=== PATIENT | female | born 1950 | race Caucasian/White ===

== ENCOUNTER → 2016-07-16 | Outpatient (CLI) | payer MEDICARE, OTHER | LOC: MW.CHFP 08:59 | PROVIDERS: ATTEND Emergency Medicine | DX: I10 Essential (primary) hypertension (principal); Z53.8 Procedure and treatment not carried out for other reasons ==

== ENCOUNTER 2022-08-08 14:22 | Emergency (ER) | payer MEDICARE ==
[2022-08-08 15:45] LABS: BASOPHILS PERCENT AUTO 0.4 % (0.0-1.5); EOSINOPHILS ABSOLUTE AUTO 0.1 K/uL (0.0-0.7); EOSINOPHILS PERCENT AUTO 0.8 % (0.0-7.0); HEMATOCRIT 40.2 % (36.0-46.0); HEMOGLOBIN 13.6 g/dL (12.0-16.0); LYMPHOCYTES ABSOLUTE AUTO 1.3 K/uL (0.6-2.4); LYMPHOCYTES PERCENT AUTO 16.9 % (16.0-40.0); MEAN CORPUSCULAR HEMOGLOBIN 29.8 pg (27.0-32.0); MEAN CORPUSCULAR HGB CONC 33.8 g/dL (31.0-37.0); MONOCYTES ABSOLUTE AUTO 0.7 K/uL (0.0-0.8); MONOCYTES PERCENT AUTO 8.5 % (0.0-15.0); NEUTROPHILS ABSOLUTE AUTO 5.6 K/uL (1.4-5.7); NEUTROPHILS PERCENT AUTO 73.4 % (48.0-80.0); NRBC ABSOLUTE 0 K/uL; PLATELET COUNT,PLT 175 K/uL (150-400); RED BLOOD CELL COUNT 4.57 M/uL (4.30-5.90); WHITE BLOOD CELL COUNT,WBC 7.65 K/uL (4.0-11.0)
[2022-08-08 16:15] LABS: A/G RATIO 1.3 (0.9-1.6); BILIRUBIN TOTAL 0.5 mg/dL (0.2-1.0); CALCIUM 9.3 mg/dL (8.5-10.1); CARBON DIOXIDE,CO2 21.9 mmol/L (21.0-32.0); CREATININE 1.5 mg/dL (0.6-1.0); EST CRCL DRUG DOSING (CG) 32.99 mL/min; MAGNESIUM 1.9 mg/dL (1.8-2.4); POTASSIUM,K 3.7 mmol/L (3.5-5.1); PROTEIN TOTAL,TP 7.2 g/dL (6.4-8.2)
[2022-08-08 17:08] VITALS: BP 154/97; PULSE 107
== END 2022-08-08 17:09 | disposition home or self-care (01) ==
LOC: MW.ED 14:22
DX: R42 Dizziness and giddiness (principal); I10 Essential (primary) hypertension; K21.9 Gastro-esophageal reflux disease without esophagitis; Z79.899 Other long term (current) drug therapy; Z79.82 Long term (current) use of aspirin
CPT/HCPCS: 36415; 70450; 70450-26; 71045; 71045-26; 80053; 83735; 83880; 84443; 84484; 85025; 93005; 99284

== ENCOUNTER 2023-08-26 15:09 | Inpatient (IN) | payer MEDICARE ==
[2023-08-26 15:25] LABS: BASOPHILS ABSOLUTE AUTO 0.05 K/uL (0.00-0.20); BASOPHILS PERCENT AUTO 0.7 % (0.0-1.0); EOSINOPHILS ABSOLUTE AUTO 0.15 K/uL (0.00-0.45); HEMATOCRIT 40.6 % (37.0-47.0); HEMOGLOBIN 13.3 g/dL (12.0-16.0); IMMATURE GRAN ABSOLUTE AUTO 0.02 K/uL (0.00-0.05); IMMATURE GRAN PERCENT AUTO 0.3 % (0.0-0.4); LYMPHOCYTES ABSOLUTE AUTO 1.38 K/uL (1.00-4.80); LYMPHOCYTES PERCENT AUTO 18.8 % (24.0-44.0); MEAN CORPUSCULAR HEMOGLOBIN 30.5 pg (28.0-32.0); MEAN CORPUSCULAR HGB CONC 32.8 g/dL (32.0-36.0); MEAN CORPUSCULAR VOLUME 93.1 fL (83.0-99.0); MEAN PLATELET VOLUME 10.1 fL (9.4-12.3); MONOCYTES ABSOLUTE AUTO 0.41 K/uL (0.00-0.80); MONOCYTES PERCENT AUTO 5.6 % (0.0-8.0); NEUTROPHILS ABSOLUTE AUTO 5.33 K/uL (1.80-7.70); NEUTROPHILS PERCENT AUTO 72.6 % (41.0-71.0); PLATELET COUNT,PLT 180 K/uL (150-400); RED BLOOD CELL COUNT 4.36 M/uL (4.10-5.30); WHITE BLOOD CELL COUNT,WBC 7.34 K/uL (3.9-11.3)
[2023-08-26 15:41] LABS: INR 1.19 (0.86-1.11)
[2023-08-26 15:55] LABS: A/G RATIO 1.3 (0.9-1.6); ALBUMIN 3.2 g/dL (3.4-5.0); BILIRUBIN TOTAL 0.5 mg/dL (0.2-1.0); CALCIUM 8.8 mg/dL (8.5-10.1); CARBON DIOXIDE,CO2 23.9 mmol/L (21.0-32.0); CREATININE 1.4 mg/dL (0.6-1.0); EST CRCL DRUG DOSING (CG) 33.31 mL/min; POTASSIUM,K 4.5 mmol/L (3.5-5.1); PROTEIN TOTAL,TP 5.7 g/dL (6.4-8.2)
[2023-08-26] MEDS: Lactated Ringers 1,000 ML IV ONE (15:59)
[2023-08-26 16:04] LABS: MAGNESIUM 1.9 mg/dL (1.8-2.4); TSH ULTRASENSITIVE 1.77 uIU/mL (0.36-3.74)
[2023-08-26] MEDS: Metoprolol Tartrate 5 MG/5 ML SDV IVPUSH ONE ×3 (17:09→18:46)
[2023-08-26] MEDS: Iopamidol 755 MG/ML 500 ML Multipack Bottle IVPUSH STA (18:28)
[2023-08-26] MEDS: Furosemide 20 MG/2 ML VIAL IVPUSH ONE (18:47)
[2023-08-26] MEDS: Diltiazem 100 MG in Sodium Chloride 0.9% 100 ML IV SCH (19:31)
[2023-08-26 19:44] LABS: APPEARANCE,URINE CLEAR; BILIRUBIN,URINE NEGATIVE (NEGATIVE); COLOR,URINE YELLOW; GLUCOSE,URINE NEGATIVE (NEGATIVE); KETONES,URINE NEGATIVE (NEGATIVE); LEUKOCYTE ESTERASE,URINE NEGATIVE (NEGATIVE); NITRITE,URINE NEGATIVE (NEGATIVE); OCCULT BLOOD,URINE NEGATIVE (NEGATIVE); PROTEIN,URINE NEGATIVE (NEGATIVE); UROBILINOGEN,URINE 0.2 EU/dL (<2.0)
[2023-08-26] MEDS ORDERED: Albuterol/Ipratropium 3.0-0.5 MG/3 ML Neb Soln NEB PRN (22:14)
[2023-08-26] MEDS ORDERED: Sodium Chloride 0.9% 2.5 ML Syringe FLUSH PRN (22:14)
[2023-08-26] MEDS ORDERED: Polyethylene Glycol 3350 Powder 17 GM Packet PO PRN (22:14)
[2023-08-26] MEDS ORDERED: Ondansetron 4 MG/2 ML SDV IVPUSH PRN (22:14)
[2023-08-26] MEDS ORDERED: Sodium Chloride 0.9% 10 ML Syringe FLUSH PRN (22:14)
[2023-08-26] MEDS ORDERED: Acetaminophen 325 MG Tab PO PRN (22:14)
[2023-08-26 22:52] LABS: HEMOGLOBIN A1C 5.7 %
[2023-08-26 23:21] LABS: BACTERIA,URINE RARE (NEGATIVE); EPITHELIAL CELLS,URINE RARE (NONE-FEW); RBC,URINE NONE SEEN (0-2/HPF); WBC,URINE 0-1 (0-5/HPF)
[2023-08-27] MEDS: Melatonin 3 MG Tab PO PRN (01:07)
[2023-08-27 05:59] LABS: BASOPHILS ABSOLUTE AUTO 0.03 K/uL (0.00-0.20); BASOPHILS PERCENT AUTO 0.5 % (0.0-1.0); EOSINOPHILS PERCENT AUTO 1.6 % (0.0-6.0); HEMATOCRIT 38.6 % (37.0-47.0); HEMOGLOBIN 12.5 g/dL (12.0-16.0); IMMATURE GRAN ABSOLUTE AUTO 0.02 K/uL (0.00-0.05); IMMATURE GRAN PERCENT AUTO 0.3 % (0.0-0.4); LYMPHOCYTES ABSOLUTE AUTO 1.28 K/uL (1.00-4.80); LYMPHOCYTES PERCENT AUTO 20.9 % (24.0-44.0); MEAN CORPUSCULAR HEMOGLOBIN 30.3 pg (28.0-32.0); MEAN CORPUSCULAR HGB CONC 32.4 g/dL (32.0-36.0); MEAN CORPUSCULAR VOLUME 93.7 fL (83.0-99.0); MEAN PLATELET VOLUME 10.4 fL (9.4-12.3); MONOCYTES ABSOLUTE AUTO 0.42 K/uL (0.00-0.80); MONOCYTES PERCENT AUTO 6.9 % (0.0-8.0); NEUTROPHILS ABSOLUTE AUTO 4.28 K/uL (1.80-7.70); NEUTROPHILS PERCENT AUTO 69.8 % (41.0-71.0); PLATELET COUNT,PLT 153 K/uL (150-400); RED BLOOD CELL COUNT 4.12 M/uL (4.10-5.30); WHITE BLOOD CELL COUNT,WBC 6.13 K/uL (3.9-11.3)
[2023-08-27 06:40] LABS: ALBUMIN 2.8 g/dL (3.4-5.0); BILIRUBIN TOTAL 0.5 mg/dL (0.2-1.0); CALCIUM 8.2 mg/dL (8.5-10.1); CARBON DIOXIDE,CO2 27.7 mmol/L (21.0-32.0); CREATININE 1.4 mg/dL (0.6-1.0); EST CRCL DRUG DOSING (CG) 32.06 mL/min; MAGNESIUM 1.8 mg/dL (1.8-2.4); PHOSPHORUS 3.7 mg/dL (2.6-4.7); POTASSIUM,K 3.8 mmol/L (3.5-5.1); PROTEIN TOTAL,TP 5.5 g/dL (6.4-8.2)
[2023-08-27] MEDS: Haloperidol Lactate 5 MG/ML SDV ONE (08:09)
[2023-08-27] MEDS: LORazepam 2 MG/ML SDV ONE (08:23)
[2023-08-27] MEDS: Diltiazem 100 MG in Sodium Chloride 0.9% 100 ML IV SCH (08:26)
[2023-08-27] MEDS: Magnesium Sulfate/Water 2 GM in Premix Bag 1 BAG IV ONE (09:48)
[2023-08-27] MEDS: Haloperidol Lactate 5 MG/ML SDV IM ONE (11:36)
[2023-08-27] MEDS: Potassium Chloride 20 MEQ Tab.ER PO ONE (11:37)
[2023-08-27] MEDS: Furosemide 40 MG/4 ML VIAL IVPUSH SCH (11:37)
[2023-08-27] MEDS: Apixaban 5 MG Tab PO SCH (11:38)
[2023-08-27] MEDS: Heparin Sodium 5,000 Units/ML Vial SUBCUT SCH (11:39)
[2023-08-27] MEDS: LORazepam 2 MG/ML SDV IVPUSH PRN (14:29)
[2023-08-27] MEDS: Mirtazapine 15 MG Tab PO SCH (20:29)
[2023-08-28] MEDS: Diltiazem 100 MG in Sodium Chloride 0.9% 100 ML IV SCH (01:37)
[2023-08-28 05:50] LABS: BASOPHILS ABSOLUTE AUTO 0.04 K/uL (0.00-0.20); BASOPHILS PERCENT AUTO 0.5 % (0.0-1.0); EOSINOPHILS ABSOLUTE AUTO 0.14 K/uL (0.00-0.45); EOSINOPHILS PERCENT AUTO 1.7 % (0.0-6.0); IMMATURE GRAN ABSOLUTE AUTO 0.02 K/uL (0.00-0.05); IMMATURE GRAN PERCENT AUTO 0.2 % (0.0-0.4); LYMPHOCYTES ABSOLUTE AUTO 0.82 K/uL (1.00-4.80); LYMPHOCYTES PERCENT AUTO 9.7 % (24.0-44.0); MEAN CORPUSCULAR HEMOGLOBIN 30.2 pg (28.0-32.0); MEAN CORPUSCULAR HGB CONC 32.5 g/dL (32.0-36.0); MEAN CORPUSCULAR VOLUME 92.8 fL (83.0-99.0); MEAN PLATELET VOLUME 9.7 fL (9.4-12.3); MONOCYTES PERCENT AUTO 5.9 % (0.0-8.0); NEUTROPHILS ABSOLUTE AUTO 6.93 K/uL (1.80-7.70); PLATELET COUNT,PLT 153 K/uL (150-400); RED BLOOD CELL COUNT 4.31 M/uL (4.10-5.30); WHITE BLOOD CELL COUNT,WBC 8.45 K/uL (3.9-11.3)
[2023-08-28 06:34] LABS: ALBUMIN 2.9 g/dL (3.4-5.0); BILIRUBIN TOTAL 0.7 mg/dL (0.2-1.0); CALCIUM 8.2 mg/dL (8.5-10.1); CARBON DIOXIDE,CO2 27.6 mmol/L (21.0-32.0); CREATININE 1.3 mg/dL (0.6-1.0); MAGNESIUM 2.2 mg/dL (1.8-2.4); POTASSIUM,K 3.5 mmol/L (3.5-5.1); PROTEIN TOTAL,TP 5.7 g/dL (6.4-8.2)
[2023-08-28 06:40] LABS: EST CRCL DRUG DOSING (CG) 33.65 mL/min
[2023-08-28] MEDS: Potassium Chloride 10% 20 MEQ/15 ML Soln 15 ML UD Cup PO ONE (11:57)
[2023-08-28] MEDS: Potassium Chloride 10% 20 MEQ/15 ML Soln 15 ML UD Cup ONE (12:02)
[2023-08-28] MEDS: Carvedilol 3.125 MG Tab PO SCH (14:16)
[2023-08-29 05:44] LABS: BASOPHILS ABSOLUTE AUTO 0.03 K/uL (0.00-0.20); BASOPHILS PERCENT AUTO 0.4 % (0.0-1.0); EOSINOPHILS ABSOLUTE AUTO 0.15 K/uL (0.00-0.45); EOSINOPHILS PERCENT AUTO 1.8 % (0.0-6.0); HEMATOCRIT 39.4 % (37.0-47.0); HEMOGLOBIN 13.2 g/dL (12.0-16.0); IMMATURE GRAN ABSOLUTE AUTO 0.02 K/uL (0.00-0.05); IMMATURE GRAN PERCENT AUTO 0.2 % (0.0-0.4); LYMPHOCYTES ABSOLUTE AUTO 1.28 K/uL (1.00-4.80); LYMPHOCYTES PERCENT AUTO 15.1 % (24.0-44.0); MEAN CORPUSCULAR HEMOGLOBIN 30.3 pg (28.0-32.0); MEAN CORPUSCULAR HGB CONC 33.5 g/dL (32.0-36.0); MEAN CORPUSCULAR VOLUME 90.4 fL (83.0-99.0); MEAN PLATELET VOLUME 9.5 fL (9.4-12.3); MONOCYTES ABSOLUTE AUTO 0.67 K/uL (0.00-0.80); MONOCYTES PERCENT AUTO 7.9 % (0.0-8.0); NEUTROPHILS PERCENT AUTO 74.6 % (41.0-71.0); PLATELET COUNT,PLT 173 K/uL (150-400); RED BLOOD CELL COUNT 4.36 M/uL (4.10-5.30); WHITE BLOOD CELL COUNT,WBC 8.45 K/uL (3.9-11.3)
[2023-08-29 06:30] LABS: A/G RATIO 1.1 (0.9-1.6); ALBUMIN 3.1 g/dL (3.4-5.0); BILIRUBIN TOTAL 0.8 mg/dL (0.2-1.0); CALCIUM 8.4 mg/dL (8.5-10.1); CARBON DIOXIDE,CO2 27.7 mmol/L (21.0-32.0); CREATININE 1.3 mg/dL (0.6-1.0); EST CRCL DRUG DOSING (CG) 33.65 mL/min; MAGNESIUM 1.9 mg/dL (1.8-2.4); POTASSIUM,K 3.5 mmol/L (3.5-5.1)
[2023-08-29] MEDS: Potassium Chloride 20 MEQ Tab.ER PO ONE (09:17)
[2023-08-29] MEDS: LORazepam 2 MG/ML SDV IVPUSH PRN (11:54)
[2023-08-29] MEDS: Carvedilol 12.5 MG Tab PO SCH (20:59)
[2023-08-29] MEDS: LORazepam 2 MG/ML SDV IVPUSH ONE (23:48)
[2023-08-30 05:56] LABS: BASOPHILS ABSOLUTE AUTO 0.04 K/uL (0.00-0.20); BASOPHILS PERCENT AUTO 0.5 % (0.0-1.0); EOSINOPHILS ABSOLUTE AUTO 0.12 K/uL (0.00-0.45); EOSINOPHILS PERCENT AUTO 1.4 % (0.0-6.0); HEMATOCRIT 43.8 % (37.0-47.0); IMMATURE GRAN ABSOLUTE AUTO 0.02 K/uL (0.00-0.05); IMMATURE GRAN PERCENT AUTO 0.2 % (0.0-0.4); LYMPHOCYTES ABSOLUTE AUTO 1.44 K/uL (1.00-4.80); LYMPHOCYTES PERCENT AUTO 17.1 % (24.0-44.0); MEAN CORPUSCULAR HEMOGLOBIN 29.7 pg (28.0-32.0); MEAN CORPUSCULAR VOLUME 92.8 fL (83.0-99.0); MONOCYTES ABSOLUTE AUTO 0.53 K/uL (0.00-0.80); MONOCYTES PERCENT AUTO 6.3 % (0.0-8.0); NEUTROPHILS ABSOLUTE AUTO 6.29 K/uL (1.80-7.70); NEUTROPHILS PERCENT AUTO 74.5 % (41.0-71.0); PLATELET COUNT,PLT 188 K/uL (150-400); RED BLOOD CELL COUNT 4.72 M/uL (4.10-5.30); WHITE BLOOD CELL COUNT,WBC 8.44 K/uL (3.9-11.3)
[2023-08-30 06:12] LABS: CALCIUM 8.8 mg/dL (8.5-10.1); CARBON DIOXIDE,CO2 25.3 mmol/L (21.0-32.0); CREATININE 1.2 mg/dL (0.6-1.0); EST CRCL DRUG DOSING (CG) 35.49 mL/min; MAGNESIUM 2.1 mg/dL (1.8-2.4); POTASSIUM,K 4.2 mmol/L (3.5-5.1)
[2023-08-30] MEDS: Carvedilol 12.5 MG Tab PO ONE (09:38)
[2023-08-30] MEDS: Carvedilol 25 MG Tab PO SCH (20:37)
[2023-08-31 05:49] LABS: BASOPHILS ABSOLUTE AUTO 0.05 K/uL (0.00-0.20); BASOPHILS PERCENT AUTO 0.5 % (0.0-1.0); EOSINOPHILS ABSOLUTE AUTO 0.18 K/uL (0.00-0.45); EOSINOPHILS PERCENT AUTO 1.8 % (0.0-6.0); HEMATOCRIT 40.2 % (37.0-47.0); HEMOGLOBIN 13.4 g/dL (12.0-16.0); IMMATURE GRAN ABSOLUTE AUTO 0.02 K/uL (0.00-0.05); IMMATURE GRAN PERCENT AUTO 0.2 % (0.0-0.4); LYMPHOCYTES ABSOLUTE AUTO 1.51 K/uL (1.00-4.80); LYMPHOCYTES PERCENT AUTO 15.4 % (24.0-44.0); MEAN CORPUSCULAR HEMOGLOBIN 30.4 pg (28.0-32.0); MEAN CORPUSCULAR HGB CONC 33.3 g/dL (32.0-36.0); MEAN CORPUSCULAR VOLUME 91.2 fL (83.0-99.0); MEAN PLATELET VOLUME 9.9 fL (9.4-12.3); MONOCYTES ABSOLUTE AUTO 0.59 K/uL (0.00-0.80); NEUTROPHILS ABSOLUTE AUTO 7.46 K/uL (1.80-7.70); NEUTROPHILS PERCENT AUTO 76.1 % (41.0-71.0); PLATELET COUNT,PLT 181 K/uL (150-400); RED BLOOD CELL COUNT 4.41 M/uL (4.10-5.30); WHITE BLOOD CELL COUNT,WBC 9.81 K/uL (3.9-11.3)
[2023-08-31 06:11] LABS: CALCIUM 8.7 mg/dL (8.5-10.1); CARBON DIOXIDE,CO2 25.3 mmol/L (21.0-32.0); CREATININE 1.4 mg/dL (0.6-1.0); POTASSIUM,K 4.2 mmol/L (3.5-5.1)
[2023-08-31 06:25] LABS: EST CRCL DRUG DOSING (CG) 30.33 mL/min
[2023-08-31] MEDS: Sodium Chloride 0.9% 250 ML IV SCH (12:59)
[2023-08-31] MEDS: Lisinopril 5 MG Tab PO SCH (13:34)
[2023-08-31] MEDS ORDERED: Spironolactone 25 MG Tab PO SCH (17:00)
[2023-08-31] MEDS: Carvedilol 25 MG Tab PO SCH (21:12)
[2023-09-01] MEDS: Metoprolol Tartrate 50 MG Tab PO SCH (21:24)
[2023-09-02 05:44] LABS: BASOPHILS ABSOLUTE AUTO 0.06 K/uL (0.00-0.20); BASOPHILS PERCENT AUTO 0.9 % (0.0-1.0); EOSINOPHILS ABSOLUTE AUTO 0.17 K/uL (0.00-0.45); EOSINOPHILS PERCENT AUTO 2.5 % (0.0-6.0); HEMATOCRIT 44.3 % (37.0-47.0); IMMATURE GRAN ABSOLUTE AUTO 0.02 K/uL (0.00-0.05); IMMATURE GRAN PERCENT AUTO 0.3 % (0.0-0.4); LYMPHOCYTES ABSOLUTE AUTO 1.68 K/uL (1.00-4.80); LYMPHOCYTES PERCENT AUTO 24.6 % (24.0-44.0); MEAN CORPUSCULAR HEMOGLOBIN 29.6 pg (28.0-32.0); MEAN CORPUSCULAR HGB CONC 31.6 g/dL (32.0-36.0); MEAN CORPUSCULAR VOLUME 93.7 fL (83.0-99.0); MEAN PLATELET VOLUME 9.9 fL (9.4-12.3); MONOCYTES ABSOLUTE AUTO 0.54 K/uL (0.00-0.80); MONOCYTES PERCENT AUTO 7.9 % (0.0-8.0); NEUTROPHILS ABSOLUTE AUTO 4.37 K/uL (1.80-7.70); NEUTROPHILS PERCENT AUTO 63.8 % (41.0-71.0); PLATELET COUNT,PLT 166 K/uL (150-400); RED BLOOD CELL COUNT 4.73 M/uL (4.10-5.30); WHITE BLOOD CELL COUNT,WBC 6.84 K/uL (3.9-11.3)
[2023-09-02 06:08] LABS: CALCIUM 8.9 mg/dL (8.5-10.1); CARBON DIOXIDE,CO2 25.9 mmol/L (21.0-32.0); CREATININE 1.4 mg/dL (0.6-1.0); MAGNESIUM 1.9 mg/dL (1.8-2.4)
[2023-09-02 06:21] LABS: EST CRCL DRUG DOSING (CG) 31.52 mL/min
[2023-09-02] MEDS: Metoprolol Succinate 100 MG Tab.ER PO SCH (11:07)
[2023-09-02 11:09] VITALS: BP 113/68; PULSE 85
== END 2023-09-02 12:24 | disposition home health service (06) | DRG 308 ==
LOC: MW.ED 15:09 → MW.ICU 22:14 → MW.MS 08-30 17:49 → MW.ICU 08-31 13:50
PROVIDERS: ADMIT Family Medicine; ATTEND Family Medicine
DX: I48.91 Unspecified atrial fibrillation (principal); I11.0 Hypertensive heart disease with heart failure; I48.0 Paroxysmal atrial fibrillation; I50.21 Acute systolic (congestive) heart failure; F02.811 Dementia in other diseases classified elsewhere, unspecified severity, with agitation; F05 Delirium due to known physiological condition; I13.0 Hypertensive heart and chronic kidney disease with heart failure and stage 1 through stage 4 chronic kidney disease, or unspecified chronic kidney disease; K21.9 Gastro-esophageal reflux disease without esophagitis; I95.9 Hypotension, unspecified; G30.9 Alzheimer's disease, unspecified; N18.32 Chronic kidney disease, stage 3b; Z79.82 Long term (current) use of aspirin; Z79.2 Long term (current) use of antibiotics; Z79.899 Other long term (current) drug therapy; Z87.01 Personal history of pneumonia (recurrent)
CPT/HCPCS: 36415; 71275; 71275-26; 80048; 80053; 80061; 81001; 83036; 83690; 83735; 83880; 84100; 84443; 84484; 85025; 85610; 85730; 93005; 93010; 93306; 96365; 96366; 96375; 96376; 99223; 99231; 99232; 99233; 99238; 99285-25; 99291; A9270-GY; J1630; J1940; J2060; J3475; J3490; J7050; J7120; Q9967

== ENCOUNTER 2023-09-20 16:33 | Inpatient (IN) | payer MEDICARE ==
[2023-09-20 16:49] LABS: BASOPHILS ABSOLUTE AUTO 0.05 K/uL (0.00-0.20); BASOPHILS PERCENT AUTO 0.5 % (0.0-1.0); EOSINOPHILS PERCENT AUTO 1.1 % (0.0-6.0); HEMATOCRIT 42.8 % (37.0-47.0); HEMOGLOBIN 13.7 g/dL (12.0-16.0); IMMATURE GRAN ABSOLUTE AUTO 0.03 K/uL (0.00-0.05); IMMATURE GRAN PERCENT AUTO 0.3 % (0.0-0.4); LYMPHOCYTES ABSOLUTE AUTO 1.49 K/uL (1.00-4.80); LYMPHOCYTES PERCENT AUTO 16.1 % (24.0-44.0); MEAN CORPUSCULAR HEMOGLOBIN 30.2 pg (28.0-32.0); MEAN CORPUSCULAR VOLUME 94.3 fL (83.0-99.0); MEAN PLATELET VOLUME 9.8 fL (9.4-12.3); MONOCYTES ABSOLUTE AUTO 0.59 K/uL (0.00-0.80); MONOCYTES PERCENT AUTO 6.4 % (0.0-8.0); NEUTROPHILS ABSOLUTE AUTO 6.97 K/uL (1.80-7.70); NEUTROPHILS PERCENT AUTO 75.6 % (41.0-71.0); PLATELET COUNT,PLT 191 K/uL (150-400); RED BLOOD CELL COUNT 4.54 M/uL (4.10-5.30); WHITE BLOOD CELL COUNT,WBC 9.23 K/uL (3.9-11.3)
[2023-09-20] MEDS: Sodium Chloride 0.9% 2.5 ML Syringe FLUSH PRN (17:16)
[2023-09-20] MEDS: Magnesium Sulfate/Water 2 GM in Premix Bag 1 BAG IV ONE (17:16)
[2023-09-20] MEDS: Sodium Chloride 0.9% 10 ML Syringe FLUSH PRN (17:16)
[2023-09-20 17:22] LABS: A/G RATIO 1.3 (0.9-1.6); ALBUMIN 3.5 g/dL (3.4-5.0); BILIRUBIN TOTAL 0.5 mg/dL (0.2-1.0); CALCIUM 8.8 mg/dL (8.5-10.1); CARBON DIOXIDE,CO2 25.3 mmol/L (21.0-32.0); CREATININE 1.6 mg/dL (0.6-1.0); EST CRCL DRUG DOSING (CG) 28.82 mL/min; POTASSIUM,K 4.7 mmol/L (3.5-5.1); PROTEIN TOTAL,TP 6.2 g/dL (6.4-8.2)
[2023-09-20] MEDS: Furosemide 40 MG/4 ML VIAL IVPUSH ONE (17:53)
[2023-09-20] MEDS: Apixaban 5 MG Tab PO SCH (23:25)
[2023-09-21 06:59] LABS: BASOPHILS ABSOLUTE AUTO 0.03 K/uL (0.00-0.20); BASOPHILS PERCENT AUTO 0.4 % (0.0-1.0); EOSINOPHILS ABSOLUTE AUTO 0.16 K/uL (0.00-0.45); EOSINOPHILS PERCENT AUTO 2.4 % (0.0-6.0); HEMATOCRIT 38.9 % (37.0-47.0); HEMOGLOBIN 12.4 g/dL (12.0-16.0); IMMATURE GRAN ABSOLUTE AUTO 0.02 K/uL (0.00-0.05); IMMATURE GRAN PERCENT AUTO 0.3 % (0.0-0.4); LYMPHOCYTES ABSOLUTE AUTO 1.39 K/uL (1.00-4.80); LYMPHOCYTES PERCENT AUTO 20.8 % (24.0-44.0); MEAN CORPUSCULAR HGB CONC 31.9 g/dL (32.0-36.0); MEAN PLATELET VOLUME 10.2 fL (9.4-12.3); MONOCYTES ABSOLUTE AUTO 0.39 K/uL (0.00-0.80); MONOCYTES PERCENT AUTO 5.8 % (0.0-8.0); NEUTROPHILS ABSOLUTE AUTO 4.68 K/uL (1.80-7.70); NEUTROPHILS PERCENT AUTO 70.3 % (41.0-71.0); PLATELET COUNT,PLT 158 K/uL (150-400); RED BLOOD CELL COUNT 4.14 M/uL (4.10-5.30); WHITE BLOOD CELL COUNT,WBC 6.67 K/uL (3.9-11.3)
[2023-09-21 07:28] LABS: CALCIUM 8.6 mg/dL (8.5-10.1); CARBON DIOXIDE,CO2 29.1 mmol/L (21.0-32.0); CREATININE 1.5 mg/dL (0.6-1.0); EST CRCL DRUG DOSING (CG) 29.93 mL/min; POTASSIUM,K 3.8 mmol/L (3.5-5.1)
[2023-09-21] MEDS: Metoprolol Succinate 100 MG Tab.ER PO SCH (09:16)
[2023-09-21] MEDS: Furosemide 40 MG/4 ML VIAL IVPUSH ONE (12:52)
[2023-09-21] MEDS: Mirtazapine 15 MG Tab PO SCH (20:24)
[2023-09-21] MEDS: MEMANTINE 10 MG PO SCH (20:24)
[2023-09-22 08:34] LABS: BASOPHILS ABSOLUTE AUTO 0.03 K/uL (0.00-0.20); BASOPHILS PERCENT AUTO 0.3 % (0.0-1.0); EOSINOPHILS ABSOLUTE AUTO 0.15 K/uL (0.00-0.45); EOSINOPHILS PERCENT AUTO 1.5 % (0.0-6.0); HEMATOCRIT 45.6 % (37.0-47.0); HEMOGLOBIN 14.9 g/dL (12.0-16.0); IMMATURE GRAN ABSOLUTE AUTO 0.03 K/uL (0.00-0.05); IMMATURE GRAN PERCENT AUTO 0.3 % (0.0-0.4); LYMPHOCYTES PERCENT AUTO 13.1 % (24.0-44.0); MEAN CORPUSCULAR HGB CONC 32.7 g/dL (32.0-36.0); MEAN CORPUSCULAR VOLUME 91.8 fL (83.0-99.0); MEAN PLATELET VOLUME 10.2 fL (9.4-12.3); MONOCYTES PERCENT AUTO 5.1 % (0.0-8.0); NEUTROPHILS ABSOLUTE AUTO 7.89 K/uL (1.80-7.70); NEUTROPHILS PERCENT AUTO 79.7 % (41.0-71.0); PLATELET COUNT,PLT 232 K/uL (150-400); RED BLOOD CELL COUNT 4.97 M/uL (4.10-5.30)
[2023-09-22 08:52] LABS: CALCIUM 9.1 mg/dL (8.5-10.1); CARBON DIOXIDE,CO2 27.2 mmol/L (21.0-32.0); CREATININE 1.7 mg/dL (0.6-1.0); EST CRCL DRUG DOSING (CG) 26.41 mL/min; POTASSIUM,K 3.4 mmol/L (3.5-5.1)
[2023-09-22] MEDS: Potassium Chloride 20 MEQ Tab.ER PO ONE (12:06)
[2023-09-22] MEDS: Furosemide 40 MG/4 ML VIAL IVPUSH SCH (12:06)
[2023-09-23 06:07] LABS: HEMATOCRIT 40.2 % (37.0-47.0); MEAN CORPUSCULAR HEMOGLOBIN 29.7 pg (28.0-32.0); MEAN CORPUSCULAR HGB CONC 32.3 g/dL (32.0-36.0); MEAN PLATELET VOLUME 9.9 fL (9.4-12.3); PLATELET COUNT,PLT 191 K/uL (150-400); RED BLOOD CELL COUNT 4.37 M/uL (4.10-5.30)
[2023-09-23 06:31] LABS: CALCIUM 8.6 mg/dL (8.5-10.1); CARBON DIOXIDE,CO2 29.6 mmol/L (21.0-32.0); CREATININE 1.6 mg/dL (0.6-1.0); EST CRCL DRUG DOSING (CG) 27.58 mL/min
[2023-09-23 12:12] VITALS: BP 99/69; PULSE 104
== END 2023-09-23 13:15 | disposition home health service (06) | DRG 291 ==
LOC: MW.ED 16:33 → MW.MS 17:43
PROVIDERS: ADMIT Internal Medicine; ATTEND Internal Medicine
DX: I11.0 Hypertensive heart disease with heart failure (principal); I13.0 Hypertensive heart and chronic kidney disease with heart failure and stage 1 through stage 4 chronic kidney disease, or unspecified chronic kidney disease; I50.23 Acute on chronic systolic (congestive) heart failure; I48.91 Unspecified atrial fibrillation; K21.9 Gastro-esophageal reflux disease without esophagitis; G30.9 Alzheimer's disease, unspecified; N18.32 Chronic kidney disease, stage 3b; F02.80 Dementia in other diseases classified elsewhere, unspecified severity, without behavioral disturbance, psychotic disturbance, mood disturbance, and anxiety; Z79.01 Long term (current) use of anticoagulants; Z87.01 Personal history of pneumonia (recurrent); Z79.899 Other long term (current) drug therapy
CPT/HCPCS: 36415; 71045; 80053; 83735; 83880; 84484; 85025; 93005; 96365; 99285; J3475; J3490; 80048; 85027; A9270-GY; J1940

== ENCOUNTER 2023-10-18 14:32 | Inpatient (IN) | payer MEDICARE ==
[2023-10-18 15:33] LABS: BASOPHILS ABSOLUTE AUTO 0.03 K/uL (0.00-0.20); BASOPHILS PERCENT AUTO 0.4 % (0.0-1.0); EOSINOPHILS ABSOLUTE AUTO 0.12 K/uL (0.00-0.45); EOSINOPHILS PERCENT AUTO 1.5 % (0.0-6.0); HEMATOCRIT 41.7 % (37.0-47.0); HEMOGLOBIN 13.7 g/dL (12.0-16.0); IMMATURE GRAN ABSOLUTE AUTO 0.02 K/uL (0.00-0.05); IMMATURE GRAN PERCENT AUTO 0.3 % (0.0-0.4); LYMPHOCYTES ABSOLUTE AUTO 1.89 K/uL (1.00-4.80); LYMPHOCYTES PERCENT AUTO 23.6 % (24.0-44.0); MEAN CORPUSCULAR HEMOGLOBIN 29.8 pg (28.0-32.0); MEAN CORPUSCULAR HGB CONC 32.9 g/dL (32.0-36.0); MEAN CORPUSCULAR VOLUME 90.7 fL (83.0-99.0); MEAN PLATELET VOLUME 9.8 fL (9.4-12.3); MONOCYTES ABSOLUTE AUTO 0.68 K/uL (0.00-0.80); MONOCYTES PERCENT AUTO 8.5 % (0.0-8.0); NEUTROPHILS ABSOLUTE AUTO 5.26 K/uL (1.80-7.70); NEUTROPHILS PERCENT AUTO 65.7 % (41.0-71.0); PLATELET COUNT,PLT 172 K/uL (150-400)
[2023-10-18 15:47] LABS: INR 1.1 (0.86-1.11)
[2023-10-18 16:05] LABS: A/G RATIO 1.3 (0.9-1.6); ALBUMIN 3.7 g/dL (3.4-5.0); BILIRUBIN TOTAL 0.4 mg/dL (0.2-1.0); CALCIUM 9.3 mg/dL (8.5-10.1); EST CRCL DRUG DOSING (CG) 21.41 mL/min; POTASSIUM,K 4.2 mmol/L (3.5-5.1); PROTEIN TOTAL,TP 6.5 g/dL (6.4-8.2); TSH ULTRASENSITIVE 1.28 uIU/mL (0.36-3.74)
[2023-10-18] MEDS: Sodium Chloride 0.9% 500 ML IV SCH (16:59)
[2023-10-18] MEDS: Sodium Chloride 0.9% 2.5 ML Syringe FLUSH PRN (17:01)
[2023-10-18] MEDS: Sodium Chloride 0.9% 10 ML Syringe FLUSH PRN (17:01)
[2023-10-18] MEDS: Digoxin 500 MCG/2 ML Amp IVPUSH ONE (17:11)
[2023-10-18] MEDS ORDERED: Polyethylene Glycol 3350 Powder 17 GM Packet PO PRN (18:01)
[2023-10-18] MEDS ORDERED: Ondansetron 4 MG Tab.DIS PO PRN (18:01)
[2023-10-18] MEDS: Diltiazem 100 MG in Sodium Chloride 0.9% 100 ML IV SCH (18:41)
[2023-10-18] MEDS: Apixaban 5 MG Tab PO SCH (20:37)
[2023-10-19 01:29] LABS: BILIRUBIN,URINE NEGATIVE (NEGATIVE); COLOR,URINE YELLOW; GLUCOSE,URINE >=1000 mg/dL (NEGATIVE); KETONES,URINE NEGATIVE (NEGATIVE); LEUKOCYTE ESTERASE,URINE NEGATIVE (NEGATIVE); NITRITE,URINE POSITIVE (NEGATIVE); OCCULT BLOOD,URINE NEGATIVE (NEGATIVE); PROTEIN,URINE NEGATIVE (NEGATIVE); UROBILINOGEN,URINE 0.2 EU/dL (<2.0)
[2023-10-19 01:40] LABS: APPEARANCE,URINE SLT CLOUDY; BACTERIA,URINE 4+ (NEGATIVE); EPITHELIAL CELLS,URINE OCCASIONAL (NONE-FEW); RBC,URINE 0-2 (0-2/HPF)
[2023-10-19 01:43] LABS: AMPHETAMINES SCREEN, URINE NEGATIVE (CUTOFF=500); BARBITURATE SCREEN,URINE NEGATIVE (CUTOFF=200); BENZODIAZEPINES SCREEN,URINE NEGATIVE (CUTOFF=150); BUPRENORPHINE SCREEN,URINE NEGATIVE (CUTOFF=10); METHADONE SCREEN, URINE NEGATIVE (CUTOFF=200); METHAMPHETAMINES SCREEN, URINE NEGATIVE (CUTOFF=500); OXYCODONE SCREEN,URINE NEGATIVE (CUT0FF=100); PCP SCREEN,URINE NEGATIVE (CUTOFF=25); THC SCREEN,URINE 20 NG/ML NEGATIVE (CUTOFF=50)
[2023-10-19 06:15] LABS: BASOPHILS ABSOLUTE AUTO 0.05 K/uL (0.00-0.20); BASOPHILS PERCENT AUTO 0.7 % (0.0-1.0); EOSINOPHILS ABSOLUTE AUTO 0.17 K/uL (0.00-0.45); EOSINOPHILS PERCENT AUTO 2.4 % (0.0-6.0); HEMATOCRIT 42.3 % (37.0-47.0); IMMATURE GRAN ABSOLUTE AUTO 0.01 K/uL (0.00-0.05); IMMATURE GRAN PERCENT AUTO 0.1 % (0.0-0.4); LYMPHOCYTES ABSOLUTE AUTO 1.87 K/uL (1.00-4.80); LYMPHOCYTES PERCENT AUTO 26.7 % (24.0-44.0); MEAN CORPUSCULAR HGB CONC 33.1 g/dL (32.0-36.0); MEAN CORPUSCULAR VOLUME 90.6 fL (83.0-99.0); MEAN PLATELET VOLUME 9.7 fL (9.4-12.3); MONOCYTES ABSOLUTE AUTO 0.45 K/uL (0.00-0.80); MONOCYTES PERCENT AUTO 6.4 % (0.0-8.0); NEUTROPHILS ABSOLUTE AUTO 4.46 K/uL (1.80-7.70); NEUTROPHILS PERCENT AUTO 63.7 % (41.0-71.0); PLATELET COUNT,PLT 147 K/uL (150-400); RED BLOOD CELL COUNT 4.67 M/uL (4.10-5.30); WHITE BLOOD CELL COUNT,WBC 7.01 K/uL (3.9-11.3)
[2023-10-19 06:44] LABS: A/G RATIO 1.2 (0.9-1.6); ALBUMIN 3.3 g/dL (3.4-5.0); BILIRUBIN TOTAL 0.6 mg/dL (0.2-1.0); CALCIUM 9.1 mg/dL (8.5-10.1); CARBON DIOXIDE,CO2 27.9 mmol/L (21.0-32.0); CREATININE 1.5 mg/dL (0.6-1.0); EST CRCL DRUG DOSING (CG) 28.9 mL/min; POTASSIUM,K 4.3 mmol/L (3.5-5.1); PROTEIN TOTAL,TP 6.1 g/dL (6.4-8.2)
[2023-10-19] MEDS: cefTRIAXone 1 GM in Sodium Chloride 0.9% 50 ML IV SCH (09:17)
[2023-10-19] MEDS: Metoprolol Succinate 50 MG Tab.ER PO SCH (09:20)
[2023-10-19] MEDS: Empagliflozin 25 MG Tab PO SCH (09:21)
[2023-10-19] MEDS: Acetaminophen 325 MG Tab PO PRN (09:52)
[2023-10-19] MEDS: Mirtazapine 15 MG Tab PO ONE (22:09)
[2023-10-20 06:19] LABS: BASOPHILS ABSOLUTE AUTO 0.04 K/uL (0.00-0.20); BASOPHILS PERCENT AUTO 0.5 % (0.0-1.0); EOSINOPHILS ABSOLUTE AUTO 0.18 K/uL (0.00-0.45); EOSINOPHILS PERCENT AUTO 2.4 % (0.0-6.0); HEMATOCRIT 42.1 % (37.0-47.0); IMMATURE GRAN ABSOLUTE AUTO 0.01 K/uL (0.00-0.05); IMMATURE GRAN PERCENT AUTO 0.1 % (0.0-0.4); LYMPHOCYTES ABSOLUTE AUTO 1.87 K/uL (1.00-4.80); LYMPHOCYTES PERCENT AUTO 25.3 % (24.0-44.0); MEAN CORPUSCULAR HEMOGLOBIN 29.5 pg (28.0-32.0); MEAN CORPUSCULAR HGB CONC 33.3 g/dL (32.0-36.0); MEAN CORPUSCULAR VOLUME 88.6 fL (83.0-99.0); MEAN PLATELET VOLUME 9.8 fL (9.4-12.3); MONOCYTES ABSOLUTE AUTO 0.45 K/uL (0.00-0.80); MONOCYTES PERCENT AUTO 6.1 % (0.0-8.0); NEUTROPHILS ABSOLUTE AUTO 4.84 K/uL (1.80-7.70); NEUTROPHILS PERCENT AUTO 65.6 % (41.0-71.0); PLATELET COUNT,PLT 152 K/uL (150-400); RED BLOOD CELL COUNT 4.75 M/uL (4.10-5.30); WHITE BLOOD CELL COUNT,WBC 7.39 K/uL (3.9-11.3)
[2023-10-20 06:41] LABS: A/G RATIO 1.1 (0.9-1.6); ALBUMIN 3.3 g/dL (3.4-5.0); BILIRUBIN TOTAL 0.5 mg/dL (0.2-1.0); CARBON DIOXIDE,CO2 23.6 mmol/L (21.0-32.0); CREATININE 1.4 mg/dL (0.6-1.0); EST CRCL DRUG DOSING (CG) 31.52 mL/min; POTASSIUM,K 3.9 mmol/L (3.5-5.1); PROTEIN TOTAL,TP 6.3 g/dL (6.4-8.2)
[2023-10-20 08:19] VITALS: PULSE 114
[2023-10-20] MEDS: Potassium Chloride 20 MEQ Tab.ER PO ONE (08:19)
[2023-10-20 10:06] VITALS: BP 116/69
== END 2023-10-20 11:25 | disposition home or self-care (01) | DRG 312 ==
LOC: MW.ED 14:32 → MW.ICU 17:00
PROVIDERS: ADMIT Family Medicine; ATTEND Family Medicine
DX: I95.2 Hypotension due to drugs (principal); F02.84 Dementia in other diseases classified elsewhere, unspecified severity, with anxiety; I11.0 Hypertensive heart disease with heart failure; I13.0 Hypertensive heart and chronic kidney disease with heart failure and stage 1 through stage 4 chronic kidney disease, or unspecified chronic kidney disease; N17.9 Acute kidney failure, unspecified; N39.0 Urinary tract infection, site not specified; I48.91 Unspecified atrial fibrillation; E86.0 Dehydration; T44.7X5A Adverse effect of beta-adrenoreceptor antagonists, initial encounter; I50.9 Heart failure, unspecified; M25.512 Pain in left shoulder; G30.9 Alzheimer's disease, unspecified; N18.32 Chronic kidney disease, stage 3b; K21.9 Gastro-esophageal reflux disease without esophagitis; Z87.01 Personal history of pneumonia (recurrent); Z79.01 Long term (current) use of anticoagulants; Z79.899 Other long term (current) drug therapy
CPT/HCPCS: 36415; 71045; 73030; 73060; 80053; 84443; 84484; 85025; 85610; 87040 ×2; 93005; 99285; J7040; 80305-QW; 81001; 83605; 83735; 87086; 87088; 87186; 99223; 99232; 99239; 99284; A9270-GY; J1160; J3490

== ENCOUNTER 2023-11-06 15:45 | Emergency (ER) | payer MEDICARE ==
[2023-11-06] MEDS ORDERED: Sodium Chloride 0.9% 10 ML Syringe FLUSH PRN (15:57)
[2023-11-06] MEDS ORDERED: Sodium Chloride 0.9% 2.5 ML Syringe FLUSH PRN (15:57)
[2023-11-06 16:51] LABS: BASOPHILS ABSOLUTE AUTO 0.04 K/uL (0.00-0.20); BASOPHILS PERCENT AUTO 0.6 % (0.0-1.0); EOSINOPHILS ABSOLUTE AUTO 0.11 K/uL (0.00-0.45); EOSINOPHILS PERCENT AUTO 1.6 % (0.0-6.0); HEMATOCRIT 36.7 % (37.0-47.0); IMMATURE GRAN ABSOLUTE AUTO 0.01 K/uL (0.00-0.05); IMMATURE GRAN PERCENT AUTO 0.1 % (0.0-0.4); LYMPHOCYTES ABSOLUTE AUTO 1.61 K/uL (1.00-4.80); MEAN CORPUSCULAR HEMOGLOBIN 30.1 pg (28.0-32.0); MEAN CORPUSCULAR HGB CONC 32.7 g/dL (32.0-36.0); MEAN PLATELET VOLUME 9.6 fL (9.4-12.3); MONOCYTES ABSOLUTE AUTO 0.52 K/uL (0.00-0.80); MONOCYTES PERCENT AUTO 7.8 % (0.0-8.0); NEUTROPHILS ABSOLUTE AUTO 4.41 K/uL (1.80-7.70); NEUTROPHILS PERCENT AUTO 65.9 % (41.0-71.0); NRBC ABSOLUTE 0.03 K/uL (0.00-0.02); NRBC PERCENT 0.4 /100WBC (0.0-0.2); PLATELET COUNT,PLT 166 K/uL (150-400); RED BLOOD CELL COUNT 3.99 M/uL (4.10-5.30)
[2023-11-06 17:09] LABS: INR 1.11 (0.86-1.11)
[2023-11-06 17:28] LABS: CORONAVIRUS COVID-19 NAA NEGATIVE (NEGATIVE); INFLUENZA A NAA NEGATIVE (NEGATIVE); INFLUENZA B NAA NEGATIVE (NEGATIVE); RESPIRATORY SYNCYTIAL VIR NAA NEGATIVE (NEGATIVE)
[2023-11-06 17:32] LABS: A/G RATIO 1.3 (0.9-1.6); ALBUMIN 3.4 g/dL (3.4-5.0); BILIRUBIN TOTAL 0.3 mg/dL (0.2-1.0); CALCIUM 9.1 mg/dL (8.5-10.1); CARBON DIOXIDE,CO2 26.9 mmol/L (21.0-32.0); CREATININE 1.5 mg/dL (0.6-1.0); EST CRCL DRUG DOSING (CG) 29.01 mL/min; POTASSIUM,K 4.6 mmol/L (3.5-5.1); PROTEIN TOTAL,TP 6.1 g/dL (6.4-8.2); TSH ULTRASENSITIVE 1.56 uIU/mL (0.36-3.74)
[2023-11-06 18:30] VITALS: BP 116/80; PULSE 61
== END 2023-11-06 18:28 | disposition home or self-care (01) ==
LOC: MW.ED 15:45
DX: R06.02 Shortness of breath (principal); I10 Essential (primary) hypertension; I48.91 Unspecified atrial fibrillation; Z79.01 Long term (current) use of anticoagulants; Z79.899 Other long term (current) drug therapy; Z75.8 Other problems related to medical facilities and other health care
CPT/HCPCS: 0241U; 36415; 71045; 80053; 84443; 84484; 85025; 85610; 93005; 99285

== ENCOUNTER 2023-11-27 14:02 | Emergency (ER) | payer MEDICARE ==
[2023-11-27 14:50] LABS: BASOPHILS ABSOLUTE AUTO 0.04 K/uL (0.00-0.20); BASOPHILS PERCENT AUTO 0.5 % (0.0-1.0); EOSINOPHILS ABSOLUTE AUTO 0.06 K/uL (0.00-0.45); EOSINOPHILS PERCENT AUTO 0.8 % (0.0-6.0); HEMATOCRIT 39.4 % (37.0-47.0); HEMOGLOBIN 12.6 g/dL (12.0-16.0); IMMATURE GRAN ABSOLUTE AUTO 0.02 K/uL (0.00-0.05); IMMATURE GRAN PERCENT AUTO 0.3 % (0.0-0.4); LYMPHOCYTES ABSOLUTE AUTO 1.48 K/uL (1.00-4.80); LYMPHOCYTES PERCENT AUTO 19.2 % (24.0-44.0); MEAN CORPUSCULAR HEMOGLOBIN 30.1 pg (28.0-32.0); MEAN CORPUSCULAR VOLUME 94.3 fL (83.0-99.0); MEAN PLATELET VOLUME 9.9 fL (9.4-12.3); MONOCYTES ABSOLUTE AUTO 0.49 K/uL (0.00-0.80); MONOCYTES PERCENT AUTO 6.4 % (0.0-8.0); NEUTROPHILS PERCENT AUTO 72.8 % (41.0-71.0); PLATELET COUNT,PLT 173 K/uL (150-400); RED BLOOD CELL COUNT 4.18 M/uL (4.10-5.30); WHITE BLOOD CELL COUNT,WBC 7.69 K/uL (3.9-11.3)
[2023-11-27 15:07] LABS: INR 1.14 (0.86-1.11); PTT,PARTIAL THROMBOPLSTIN TIME 28.2 SEC (23.9-30.7)
[2023-11-27] MEDS: Metoprolol Tartrate 25 MG Tab PO STA (15:10)
[2023-11-27 15:16] LABS: A/G RATIO 1.2 (0.9-1.6); ALBUMIN 3.3 g/dL (3.4-5.0); BILIRUBIN TOTAL 0.3 mg/dL (0.2-1.0); CALCIUM 8.7 mg/dL (8.5-10.1); CARBON DIOXIDE,CO2 27.9 mmol/L (21.0-32.0); CREATININE 1.5 mg/dL (0.6-1.0); EST CRCL DRUG DOSING (CG) 29.16 mL/min; MAGNESIUM 1.9 mg/dL (1.8-2.4); POTASSIUM,K 4.3 mmol/L (3.5-5.1); TSH ULTRASENSITIVE 1.25 uIU/mL (0.36-3.74)
[2023-11-27] MEDS: Metoprolol Tartrate 5 MG/5 ML SDV IVPUSH STA ×2 (15:31→16:26)
[2023-11-27] MEDS: Diltiazem 25 MG/5 ML SDV IVPUSH STA (17:16)
[2023-11-27 17:35] VITALS: BP 123/87; PULSE 108
== END 2023-11-27 17:34 | disposition left against medical advice (07) ==
LOC: MW.ED 14:02
DX: I48.92 Unspecified atrial flutter (principal); I10 Essential (primary) hypertension; K21.9 Gastro-esophageal reflux disease without esophagitis; Z79.01 Long term (current) use of anticoagulants; Z79.899 Other long term (current) drug therapy
CPT/HCPCS: 36415; 71046; 80053; 83735; 84443; 84484; 85025; 85610; 85730; 93005; 96374; 96376; 99285; J3490; 93010

== ENCOUNTER 2024-02-14 10:06 | Inpatient (IN) | payer MEDICARE ==
[2024-02-14 10:34] LABS: BASOPHILS ABSOLUTE AUTO 0.01 K/uL (0.00-0.20); BASOPHILS PERCENT AUTO 0.1 % (0.0-1.0); EOSINOPHILS ABSOLUTE AUTO 0.01 K/uL (0.00-0.45); EOSINOPHILS PERCENT AUTO 0.1 % (0.0-6.0); HEMATOCRIT 42.1 % (37.0-47.0); HEMOGLOBIN 14.3 g/dL (12.0-16.0); IMMATURE GRAN ABSOLUTE AUTO 0.03 K/uL (0.00-0.05); IMMATURE GRAN PERCENT AUTO 0.3 % (0.0-0.4); LYMPHOCYTES ABSOLUTE AUTO 0.86 K/uL (1.00-4.80); LYMPHOCYTES PERCENT AUTO 8.3 % (24.0-44.0); MEAN CORPUSCULAR HEMOGLOBIN 30.6 pg (28.0-32.0); MEAN CORPUSCULAR VOLUME 90.1 fL (83.0-99.0); MONOCYTES PERCENT AUTO 4.8 % (0.0-8.0); NEUTROPHILS ABSOLUTE AUTO 8.98 K/uL (1.80-7.70); NEUTROPHILS PERCENT AUTO 86.4 % (41.0-71.0); PLATELET COUNT,PLT 154 K/uL (150-400); RED BLOOD CELL COUNT 4.67 M/uL (4.10-5.30); WHITE BLOOD CELL COUNT,WBC 10.39 K/uL (3.9-11.3)
[2024-02-14 11:05] LABS: A/G RATIO 1.3 (0.9-1.6); ALBUMIN 3.8 g/dL (3.4-5.0); CALCIUM 9.5 mg/dL (8.5-10.1); CARBON DIOXIDE,CO2 25.6 mmol/L (21.0-32.0); CREATININE 1.4 mg/dL (0.6-1.0); EST CRCL DRUG DOSING (CG) 31.33 mL/min; MAGNESIUM 2.1 mg/dL (1.8-2.4); POTASSIUM,K 3.9 mmol/L (3.5-5.1); PROTEIN TOTAL,TP 6.8 g/dL (6.4-8.2)
[2024-02-14 11:28] LABS: BILIRUBIN,URINE NEGATIVE (NEGATIVE); COLOR,URINE YELLOW; GLUCOSE,URINE 500 mg/dL (NEGATIVE); KETONES,URINE TRACE mg/dL (NEGATIVE); LEUKOCYTE ESTERASE,URINE NEGATIVE (NEGATIVE); NITRITE,URINE NEGATIVE (NEGATIVE); OCCULT BLOOD,URINE SMALL (NEGATIVE); PROTEIN,URINE TRACE mg/dL (NEGATIVE); UROBILINOGEN,URINE 0.2 EU/dL (<2.0)
[2024-02-14] MEDS: Sodium Chloride 0.9% 1,000 ML IV STA (11:30)
[2024-02-14 11:33] LABS: APPEARANCE,URINE SLT CLOUDY
[2024-02-14 11:36] LABS: BACTERIA,URINE 3+ (NEGATIVE); EPITHELIAL CELLS,URINE FEW (NONE-FEW); MUCUS,URINE LIGHT (NONE-MOD)
[2024-02-14] MEDS: cefTRIAXone 1 GM in Sodium Chloride 0.9% 50 ML IV STA (12:23)
[2024-02-14] MEDS: Iopamidol 755 MG/ML 500 ML Multipack Bottle IVPUSH STA (12:25)
[2024-02-14] MEDS ORDERED: Acetaminophen 325 MG Tab PO PRN (15:26)
[2024-02-14] MEDS ORDERED: Naloxone 0.4 MG/ML SDV IVPUSH PRN (16:13)
[2024-02-14] MEDS: Acetaminophen 325 MG Tab PO SCH (17:25)
[2024-02-14] MEDS: HYDROmorphone 0.5 MG/0.5 ML Syringe IVPUSH PRN (18:41)
[2024-02-14] MEDS: Mirtazapine 15 MG Tab PO SCH (21:09)
[2024-02-14] MEDS: Apixaban 5 MG Tab PO SCH (21:09)
[2024-02-14] MEDS: Metoprolol Succinate 50 MG Tab.ER PO SCH (21:09)
[2024-02-15 06:31] LABS: BASOPHILS ABSOLUTE AUTO 0.03 K/uL (0.00-0.20); BASOPHILS PERCENT AUTO 0.4 % (0.0-1.0); EOSINOPHILS ABSOLUTE AUTO 0.09 K/uL (0.00-0.45); EOSINOPHILS PERCENT AUTO 1.1 % (0.0-6.0); HEMATOCRIT 40.9 % (37.0-47.0); HEMOGLOBIN 13.6 g/dL (12.0-16.0); IMMATURE GRAN ABSOLUTE AUTO 0.02 K/uL (0.00-0.05); IMMATURE GRAN PERCENT AUTO 0.3 % (0.0-0.4); LYMPHOCYTES ABSOLUTE AUTO 1.27 K/uL (1.00-4.80); LYMPHOCYTES PERCENT AUTO 16.2 % (24.0-44.0); MEAN CORPUSCULAR HEMOGLOBIN 30.6 pg (28.0-32.0); MEAN CORPUSCULAR HGB CONC 33.3 g/dL (32.0-36.0); MEAN CORPUSCULAR VOLUME 92.1 fL (83.0-99.0); MEAN PLATELET VOLUME 10.1 fL (9.4-12.3); MONOCYTES ABSOLUTE AUTO 0.67 K/uL (0.00-0.80); MONOCYTES PERCENT AUTO 8.5 % (0.0-8.0); NEUTROPHILS ABSOLUTE AUTO 5.78 K/uL (1.80-7.70); NEUTROPHILS PERCENT AUTO 73.5 % (41.0-71.0); PLATELET COUNT,PLT 138 K/uL (150-400); RED BLOOD CELL COUNT 4.44 M/uL (4.10-5.30); WHITE BLOOD CELL COUNT,WBC 7.86 K/uL (3.9-11.3)
[2024-02-15 06:52] LABS: A/G RATIO 1.1 (0.9-1.6); ALBUMIN 3.3 g/dL (3.4-5.0); BILIRUBIN TOTAL 0.4 mg/dL (0.2-1.0); CALCIUM 8.6 mg/dL (8.5-10.1); CARBON DIOXIDE,CO2 28.3 mmol/L (21.0-32.0); CREATININE 1.3 mg/dL (0.6-1.0); EST CRCL DRUG DOSING (CG) 33.35 mL/min; POTASSIUM,K 3.8 mmol/L (3.5-5.1); PROTEIN TOTAL,TP 6.2 g/dL (6.4-8.2)
[2024-02-15] MEDS: Sennosides/Docusate Sodium 50-8.6 MG Tab PO SCH (12:30)
[2024-02-15] MEDS: Polyethylene Glycol 3350 Powder 17 GM Packet PO SCH (12:30)
[2024-02-15] MEDS: cefTRIAXone 1 GM in Sodium Chloride 0.9% 50 ML IV SCH (13:24)
[2024-02-16 06:41] LABS: BASOPHILS ABSOLUTE AUTO 0.03 K/uL (0.00-0.20); BASOPHILS PERCENT AUTO 0.4 % (0.0-1.0); EOSINOPHILS ABSOLUTE AUTO 0.13 K/uL (0.00-0.45); EOSINOPHILS PERCENT AUTO 1.9 % (0.0-6.0); HEMATOCRIT 41.3 % (37.0-47.0); HEMOGLOBIN 13.9 g/dL (12.0-16.0); IMMATURE GRAN ABSOLUTE AUTO 0.02 K/uL (0.00-0.05); IMMATURE GRAN PERCENT AUTO 0.3 % (0.0-0.4); LYMPHOCYTES ABSOLUTE AUTO 1.15 K/uL (1.00-4.80); LYMPHOCYTES PERCENT AUTO 16.4 % (24.0-44.0); MEAN CORPUSCULAR HEMOGLOBIN 30.8 pg (28.0-32.0); MEAN CORPUSCULAR HGB CONC 33.7 g/dL (32.0-36.0); MEAN CORPUSCULAR VOLUME 91.6 fL (83.0-99.0); MEAN PLATELET VOLUME 10.2 fL (9.4-12.3); MONOCYTES ABSOLUTE AUTO 0.52 K/uL (0.00-0.80); MONOCYTES PERCENT AUTO 7.4 % (0.0-8.0); NEUTROPHILS ABSOLUTE AUTO 5.15 K/uL (1.80-7.70); NEUTROPHILS PERCENT AUTO 73.6 % (41.0-71.0); PLATELET COUNT,PLT 142 K/uL (150-400); RED BLOOD CELL COUNT 4.51 M/uL (4.10-5.30)
[2024-02-16 07:16] LABS: A/G RATIO 1.2 (0.9-1.6); ALBUMIN 3.4 g/dL (3.4-5.0); BILIRUBIN TOTAL 0.4 mg/dL (0.2-1.0); CALCIUM 8.9 mg/dL (8.5-10.1); CARBON DIOXIDE,CO2 24.9 mmol/L (21.0-32.0); CREATININE 1.2 mg/dL (0.6-1.0); EST CRCL DRUG DOSING (CG) 36.13 mL/min; POTASSIUM,K 3.6 mmol/L (3.5-5.1); PROTEIN TOTAL,TP 6.3 g/dL (6.4-8.2)
[2024-02-16] MEDS: Folic Acid 1 MG Tab PO SCH (10:22)
[2024-02-16] MEDS: Lidocaine 4% 1 each Patch TOP SCH (12:49)
[2024-02-16] MEDS: traMADol 50 MG Tab PO PRN (14:29)
[2024-02-16] MEDS ORDERED: Naloxone 0.4 MG/ML SDV IVPUSH PRN (16:00)
[2024-02-16] MEDS: Morphine 2 MG/ML SYRINGE IVPUSH PRN (16:17)
[2024-02-16] MEDS: Sodium Chloride 0.9% 1,000 ML IV SCH ×2 (16:28→16:41)
[2024-02-17 06:55] LABS: BASOPHILS ABSOLUTE AUTO 0.04 K/uL (0.00-0.20); BASOPHILS PERCENT AUTO 0.5 % (0.0-1.0); EOSINOPHILS PERCENT AUTO 1.3 % (0.0-6.0); HEMATOCRIT 39.6 % (37.0-47.0); HEMOGLOBIN 13.4 g/dL (12.0-16.0); IMMATURE GRAN ABSOLUTE AUTO 0.02 K/uL (0.00-0.05); IMMATURE GRAN PERCENT AUTO 0.3 % (0.0-0.4); LYMPHOCYTES ABSOLUTE AUTO 1.13 K/uL (1.00-4.80); LYMPHOCYTES PERCENT AUTO 14.7 % (24.0-44.0); MEAN CORPUSCULAR HEMOGLOBIN 30.5 pg (28.0-32.0); MEAN CORPUSCULAR HGB CONC 33.8 g/dL (32.0-36.0); MEAN PLATELET VOLUME 9.8 fL (9.4-12.3); MONOCYTES ABSOLUTE AUTO 0.65 K/uL (0.00-0.80); MONOCYTES PERCENT AUTO 8.4 % (0.0-8.0); NEUTROPHILS ABSOLUTE AUTO 5.77 K/uL (1.80-7.70); NEUTROPHILS PERCENT AUTO 74.8 % (41.0-71.0); PLATELET COUNT,PLT 154 K/uL (150-400); WHITE BLOOD CELL COUNT,WBC 7.71 K/uL (3.9-11.3)
[2024-02-17 07:26] LABS: A/G RATIO 1.1 (0.9-1.6); ALBUMIN 3.1 g/dL (3.4-5.0); BILIRUBIN TOTAL 0.5 mg/dL (0.2-1.0); CALCIUM 8.5 mg/dL (8.5-10.1); CARBON DIOXIDE,CO2 26.3 mmol/L (21.0-32.0); CREATININE 1.1 mg/dL (0.6-1.0); EST CRCL DRUG DOSING (CG) 39.41 mL/min; POTASSIUM,K 3.1 mmol/L (3.5-5.1); PROTEIN TOTAL,TP 5.9 g/dL (6.4-8.2)
[2024-02-17] MEDS: Potassium Chloride 20 MEQ Tab.ER PO ONE (09:37)
[2024-02-17] MEDS: Haloperidol Lactate 5 MG/ML SDV IM ONE ×2 (11:36→21:37)
[2024-02-18 06:25] LABS: BASOPHILS ABSOLUTE AUTO 0.03 K/uL (0.00-0.20); BASOPHILS PERCENT AUTO 0.4 % (0.0-1.0); EOSINOPHILS ABSOLUTE AUTO 0.12 K/uL (0.00-0.45); EOSINOPHILS PERCENT AUTO 1.5 % (0.0-6.0); HEMOGLOBIN 14.3 g/dL (12.0-16.0); IMMATURE GRAN ABSOLUTE AUTO 0.04 K/uL (0.00-0.05); IMMATURE GRAN PERCENT AUTO 0.5 % (0.0-0.4); LYMPHOCYTES ABSOLUTE AUTO 1.39 K/uL (1.00-4.80); LYMPHOCYTES PERCENT AUTO 16.8 % (24.0-44.0); MEAN CORPUSCULAR HEMOGLOBIN 29.9 pg (28.0-32.0); MEAN CORPUSCULAR HGB CONC 32.5 g/dL (32.0-36.0); MEAN CORPUSCULAR VOLUME 92.1 fL (83.0-99.0); MEAN PLATELET VOLUME 9.9 fL (9.4-12.3); MONOCYTES ABSOLUTE AUTO 0.63 K/uL (0.00-0.80); MONOCYTES PERCENT AUTO 7.6 % (0.0-8.0); NEUTROPHILS ABSOLUTE AUTO 6.06 K/uL (1.80-7.70); NEUTROPHILS PERCENT AUTO 73.2 % (41.0-71.0); PLATELET COUNT,PLT 155 K/uL (150-400); RED BLOOD CELL COUNT 4.78 M/uL (4.10-5.30); WHITE BLOOD CELL COUNT,WBC 8.27 K/uL (3.9-11.3)
[2024-02-18 06:44] LABS: CALCIUM 8.8 mg/dL (8.5-10.1); CARBON DIOXIDE,CO2 25.3 mmol/L (21.0-32.0); CREATININE 1.1 mg/dL (0.6-1.0); EST CRCL DRUG DOSING (CG) 39.41 mL/min; POTASSIUM,K 3.8 mmol/L (3.5-5.1)
[2024-02-18 12:39] VITALS: BP 147/75; PULSE 83
== END 2024-02-18 13:15 | disposition home health service (06) | DRG 552 ==
LOC: MW.ED 10:06 → UNDOADMIN 14:39 → MW.MS 14:39
PROVIDERS: ADMIT Family Medicine; ATTEND Family Medicine
DX: S22.089A Unspecified fracture of T11-T12 vertebra, initial encounter for closed fracture (principal); N30.00 Acute cystitis without hematuria; I13.0 Hypertensive heart and chronic kidney disease with heart failure and stage 1 through stage 4 chronic kidney disease, or unspecified chronic kidney disease; N30.01 Acute cystitis with hematuria; I50.9 Heart failure, unspecified; I50.22 Chronic systolic (congestive) heart failure; I48.91 Unspecified atrial fibrillation; R79.0 Abnormal level of blood mineral; K21.9 Gastro-esophageal reflux disease without esophagitis; K56.41 Fecal impaction; N18.32 Chronic kidney disease, stage 3b; Z75.8 Other problems related to medical facilities and other health care; X58.XXXA Exposure to other specified factors, initial encounter; G30.9 Alzheimer's disease, unspecified; F02.80 Dementia in other diseases classified elsewhere, unspecified severity, without behavioral disturbance, psychotic disturbance, mood disturbance, and anxiety; B96.1 Klebsiella pneumoniae [K. pneumoniae] as the cause of diseases classified elsewhere; W19.XXXA Unspecified fall, initial encounter; M47.812 Spondylosis without myelopathy or radiculopathy, cervical region; Z79.01 Long term (current) use of anticoagulants; Z79.899 Other long term (current) drug therapy; Z87.01 Personal history of pneumonia (recurrent); Z79.1 Long term (current) use of non-steroidal anti-inflammatories (NSAID); Z79.2 Long term (current) use of antibiotics; Y93.89 Activity, other specified; Y92.89 Other specified places as the place of occurrence of the external cause
CPT/HCPCS: 36415; 70450; 71045; 72125; 72128; 74177; 80053; 81001; 83690; 83735; 83880; 84484; 85025; 87086; 87088; 87186; 87428; 93005; 96361; 96365; 99285; J0696; J3490; J7030; Q9967; 51701; 51798; 72131; 72131-26; 80048; 80162; 93010; 97162-GP; A9270-GY; J1171; J1630; J2270